=== PATIENT | male | born 1960 | race Caucasian/White ===

== ENCOUNTER 2018-12-28 09:03 | Emergency (ER) | payer OTHER ==
[2018-12-28 09:18] VITALS: BP 116/84
--- NOTE | 2018-12-28 10:09 | UC ---
Elbow Pain - HPI Summary HPI Summary: 58-year-old male presents with complaints of redness and tenderness to his right elbow and forearm. States the redness started 2 or 3 days ago and has progressively spread to his proximal forearm. Patient reports he had a similar episode occur in his adolescence that was diagnosed as a staph infection that ultimately required an incision and drainage. Denies injury, fever, chills, decreased range of motion, numbness, or tingling. - History of Current Complaint Chief Complaint: UCUpperExtremity Stated Complaint: SOFT TISSUE COMPLAINT Time Seen by Provider: 12/28/18 10:06 Hx Obtained From: Patient Pain Intensity: 4 - Allergies/Home Medications Allergies/Adverse Reactions: Allergies Allergy/AdvReac Type Severity Reaction Status Date / Time Sulfa (Sulfonamide Allergy Mild Rash Verified 12/28/18 09:18 Antibiotics) Home Medications: Home Medications Testosterone 5 gm TD 12/28/18 [History] PMH/Surg Hx/FS Hx/Imm Hx Previously Healthy: Yes - Surgical History Surgical History: Yes Surgery Procedure, Year, and Place: oral - Family History Known Family History: Positive: Non-Contributory - Social History Occupation: Employed Full-time Lives: With Family Alcohol Use: Occasionally Substance Use Type: None Smoking Status (MU): Never Smoked Tobacco Review of Systems All Other Systems Reviewed And Are Negative: Yes Constitutional: Positive: Chills. Negative: Fever Skin: Positive: Other - See HPI Respiratory: Positive: Negative Cardiovascular: Positive: Negative Gastrointestinal: Positive: Negative Genitourinary: Positive: Negative Motor: Negative: Weakness Neurovascular: Negative: Decreased Sensation Musculoskeletal: Positive: Other: - See HPI Neurological: Positive: Negative Is Patient Immunocompromised?: No Physical Exam - Summary Physical Exam Summary: GENERAL APPEARANCE: Well developed, well nourished, alert and cooperative, and appears to be in no acute distress. CARDIAC: Normal S1 and S2. No S3, S4 or murmurs. Rhythm is regular. There is no peripheral edema, cyanosis or pallor. Extremities are warm and well perfused. Capillary refill is less than 2 seconds. Peripheral pulses intact. LUNGS: Clear to auscultation without rales, rhonchi, wheezing or diminished breath sounds. ABDOMEN: Positive bowel sounds. Soft, nondistended, nontender. No guarding or rebound. No masses or hepatosplenomegally. MUSKULOSKELETAL: Normal muscular development. Normal gait. EXTREMITIES: Erythema with increased warmth to the right elbow and forearm. No lesions noted. Full ROM. No edema, induration, or fluctuance noted. Circulation and sensation intact. SKIN: Skin normal color, texture and turgor. Triage Information Reviewed: Yes Vital Signs: Initial Vital Signs Temp 98 F 12/28/18 09:16 Pulse 77 12/28/18 09:16 Resp 17 12/28/18 09:16 BP 116/84 12/28/18 09:16 Pulse Ox 100 12/28/18 09:16 Vital Signs Reviewed: Yes Elbow Pain Course/Dx - Course Course Of Treatment: 58-year-old male presents with complaints of redness and tenderness to his right elbow and forearm. States the redness started 2 or 3 days ago and has progressively spread to his proximal forearm. Patient reports he had a similar episode occur in his adolescence that was diagnosed as a staph infection that ultimately required an incision and drainage. Denies injury, fever, chills, decreased range of motion, numbness, or tingling. Afebrile. Vital signs stable. Patient had erythema with increased warmth to the right elbow and forearm. No lesions noted. Full ROM. No edema, induration, or fluctuance noted. Circulation and sensation intact. Patient's exam is consistent with a cellulitis. The area of erythema was marked with a skin pen. He is to start cephalexin 500 mg 3 times a day 7 days. He is to follow-up with his primary care provider in 3 days if symptoms are not improving. Anticipatory guidance and warning symptoms were reviewed with the patient. Verbalizes understanding and agrees with plan of care. - Differential Dx/Diagnosis Differential Diagnosis/HQI/PQRI: Bursitis, Cellulitis, Sprain, Tendonitis, Other Provider Diagnosis: Cellulitis of right elbow Discharge - Sign-Out/Discharge Documenting (check all that apply): Patient Departure All imaging exams completed and their final reports reviewed: No Studies - Discharge Plan Condition: Stable Disposition: HOME Prescriptions: cephALEXin [Keflex] 500 mg PO TID #21 capsule Patient Education Materials: Cellulitis (ED) Referrals: Zac Watkins MD [Primary Care Provider] - 3 Days Additional Instructions: Your history and exam are consistent with a skin infection called cellulitis. We will start showed an antibiotic to treat for the infection. Take cephalexin 500 mg 1 capsule 3 times a day for 7 days. Be sure to complete the entire prescription even if symptoms are improved. Take acetaminophen (Tylenol) or ibuprofen (Advil, Motrin) according directions as needed for pain. Follow-up he primary care provider in 3 days if symptoms are not improving. Seek immediate medical attention in the emergency room if you develop a fever greater than 100.5 F, the redness continues to rapidly increased, you have severe pain that is not managed with acetaminophen or ibuprofen, or have any worsening of symptoms. - Billing Disposition and Condition Condition: STABLE Disposition: Home
== END 2018-12-28 10:25 | disposition home or self-care (01) ==
LOC: UCEAST 09:03
DX: L03.113 Cellulitis of right upper limb (principal); Z88.2 Allergy status to sulfonamides
CPT/HCPCS: 99212; G0463

== ENCOUNTER 2023-07-22 09:52 | Inpatient (IN) ==
[2023-07-22] MEDS ORDERED: ceFAZolin 2 GM PREMIX 2 GM/50 ML BAG ONE (10:23)
[2023-07-22] MEDS ORDERED: Naloxone 0.4 mg VIAL 0.4 mg/ml 1 ml VIAL IV PRN (10:44)
[2023-07-22] MEDS ORDERED: Ondansetron 4 mg VIAL 2 MG/ML 2 ml VIAL IV PRN ×2 (10:44→16:08)
[2023-07-22] MEDS ORDERED: fentaNYL 100 mcg/2 ml 50 MCG/ML VIAL IV PRN (10:44)
[2023-07-22] MEDS: Buffered Lidocaine 1% SYRIN 1 ml INTRADERM ONE (10:47)
[2023-07-22] MEDS: Lactated Ringers 1000 ml BAG 1,000 ML IV SCH ×2 (10:47→17:37)
[2023-07-22 10:50] LABS: Rapid COVID-19 Molecular Undetected (Undetected)
[2023-07-22] MEDS ORDERED: fentaNYL 100 mcg/2 ml 50 MCG/ML VIAL ONE (12:14)
[2023-07-22] MEDS ORDERED: Midazolam 2 mg/2 ml VIAL 1 mg/ml 2 ml VIAL (2 mg) ONE (12:15)
[2023-07-22] MEDS ORDERED: Lidocaine 1% w EPI 1:200,000 SDV 30 ML VIAL ONE (12:30)
[2023-07-22] MEDS ORDERED: Bupivacaine 0.25% SDV 30 ML ONE (12:30)
[2023-07-22] MEDS ORDERED: Propofol 10 MG/ML 20 ML BTL ONE (13:37)
[2023-07-22] MEDS ORDERED: HYDROmorphone 0.5 MG/0.5 ML SYRINGE ONE ×3 (13:37→15:30)
[2023-07-22] MEDS ORDERED: Ondansetron 4 mg VIAL 2 MG/ML 2 ml VIAL ONE (13:37)
[2023-07-22] MEDS ORDERED: Phenylephrine 40 mcg/mL 10mL (400mcg) SYRINGE ONE (15:06)
[2023-07-22] MEDS ORDERED: HYDROmorphone 0.5 MG/0.5 ML SYRINGE IV SLOW PU PRN (16:06)
[2023-07-22] MEDS ORDERED: Prochlorperazine 5 mg/ml 2 ml VIAL (10 mg) IV PRN (16:08)
[2023-07-22] MEDS ORDERED: HYDROmorphone 1 MG/1 ML SYRINGE IV SLOW PU PRN (16:08)
[2023-07-22] MEDS ORDERED: Albuterol HFA INHALER 8 gm MDI INH PRN (17:25)
[2023-07-22] MEDS: Acetaminophen IV 1 GM/100ML 1,000 MG/100 ML BAG IV SCH ×2 (17:53→18:05)
[2023-07-22] MEDS: Benzocaine/Menthol LOZ MT PRN (23:55)
[2023-07-23 10:13] VITALS: BP 124/80
[2023-07-23] MEDS: HYDROcodone/ACET. 7.5/325 LIQ 15 ML UDC PO ONE (14:42)
== END 2023-07-23 15:00 | disposition home or self-care (01) | DRG 220 ==
LOC: AA 09:52 → OBSVTOIN 15:58 → INTOOBSV 15:58
PROVIDERS: ADMIT Surgery; ATTEND Surgery